=== PATIENT | male | born 1980 | race African-American/Black ===

== ENCOUNTER 2016-10-03 10:00 | Emergency (ER) | payer OTHER ==
[~2016-10-03] VITALS: Ht 182.9 cm; Wt 117.9 kg
[2016-10-03 10:22] VITALS: BP 159/101
[2016-10-03] MEDS ORDERED: AMOXICILLIN500 M1 PO (10:38)
[2016-10-03] MEDS ORDERED: IBUPROFEN 600600 M1 PO (10:38)
[2016-10-03] MEDS ORDERED: ONDANSETRON HCL4 M2 PO (10:39)
== END 2016-10-03 11:14 | disposition home or self-care (01) ==
LOC: ER 10:00
DX: J02.0 Streptococcal pharyngitis (principal)